=== PATIENT | female | born 1985 | race African-American/Black ===

== ENCOUNTER 2018-05-18 22:17 | Emergency (ER) | payer SELFPAY ==
[2018-05-18] MEDS: ACETAMINOPHEN 325 MG TABLET. PO (23:10)
[2018-05-18] MEDS: IBUPROFEN 600 MG TABLET. PO (23:11)
== END 2018-05-18 23:45 | disposition home or self-care (01) ==
LOC: ER 22:17
DX: S63.501A Unspecified sprain of right wrist, initial encounter (principal); M25.561 Pain in right knee; M54.5 Low back pain; W01.0XXA Fall on same level from slipping, tripping and stumbling without subsequent striking against object, initial encounter; Y93.89 Activity, other specified; Y92.89 Other specified places as the place of occurrence of the external cause; Y99.8 Other external cause status
CPT/HCPCS: 29125; 73110; 73562; 99283; 99284

== ENCOUNTER 2018-05-22 22:22 | Emergency (ER) | payer SELFPAY ==
[2018-05-22] MEDS: ORPHENADRINE CITRATE 60 MG/2 ML VIAL. IM (23:53)
== END 2018-05-23 00:25 | disposition home or self-care (01) ==
LOC: ER 05-23 00:25
DX: M62.830 Muscle spasm of back (principal)
CPT/HCPCS: 96372; 99283; J2360

== ENCOUNTER 2018-05-26 11:52 | Emergency (ER) | payer SELFPAY ==
[2018-05-22 23:00] VITALS: BP 132/71
[~2018-05-26 11:52] MED LIST: DICL50TA4 PO; ORPH100T PO
== END 2018-05-26 13:17 | disposition left against medical advice (07) ==
LOC: ER 11:52
DX: M54.9 Dorsalgia, unspecified (principal); M25.519 Pain in unspecified shoulder; Z53.21 Procedure and treatment not carried out due to patient leaving prior to being seen by health care provider

== ENCOUNTER 2020-07-01 15:08 | Emergency (ER) | payer OTHER ==
[~2020-07-01] VITALS: Ht 167.6 cm; Wt 100.0 kg
[2020-07-01 16:30] VITALS: BP 157/101
[2020-07-01] MEDS ORDERED: NAPR-514 PO (16:51)
[2020-07-01] MEDS ORDERED: OFLO5DRO7 LEFT EAR (16:51)
--- NOTE | 2020-07-01 16:54 | PHYS DOC ---
Past Medical History Past Medical History: No Pertinent History Past Surgical History: No Surgical History Smoking Status: Current Every Day Smoker Additional Information: OCCASIONAL SMOKER Alcohol Use: None Drug Use: None General Adult EDM: Chief Complaint: EARACHE/EAR PAIN HPI: HPI: Patient is a 34 year old AA female who presents emergency department with complaints of bilateral ear pain for the last 3 to 4 days. She denies any decreased hearing or ringing in her ears. She states that her left ear canal is very tender to touch, she denies any drainage or bleeding. She denies any recent fever, cough, sore throat, headache, nausea, vomiting, diarrhea, cough, or shortness of breath. She currently rates her pain a 9 out of 10 on the pain scale, she denies any alleviating factors, the pain is worse with touch Review of Systems: Review of Systems: Constitutional: Denies fever or chills. [] Eyes: Denies complaints HENT: Denies nasal congestion or sore throat; see HPI. [] Respiratory: Denies cough or shortness of breath. [] Cardiovascular: Denies chest pain or edema. [] GI: Denies abdominal pain, nausea, vomiting, or diarrhea. [] Musculoskeletal: Denies back pain or joint pain. [] Integument: Denies rash. [] Neurologic: Denies headache Lymphatic: Denies swollen glands. [] Heart Score: Risk Factors: Risk Factors: DM, Current or recent (<one month) smoker, HTN, HLP, family history of CAD, obesity. Risk Scores: Score 0 - 3: 2.5% MACE over next 6 weeks - Discharge Home Score 4 - 6: 20.3% MACE over next 6 weeks - Admit for Clinical Observation Score 7 - 10: 72.7% MACE over next 6 weeks - Early Invasive Strategies Allergies: Allergies: Allergies Coded Allergies Type Severity Reaction Last Updated Verified No Known Drug Allergies 05/18/18 No Physical Exam: PE: Constitutional: Well developed, well nourished, no acute distress, non-toxic appearance. [] HENT: Normocephalic, atraumatic, bilateral external ears normal, nose normal; fluid behind bilateral TMs without bulging or perforation consistent with otitis media, there is erythema and edema of the lateral right ear canal consistent with otitis externa, no drainage, no bleeding; bilateral mastoid processes nontender no erythema or warmth. [] Eyes: PERRLA, EOMI, conjunctiva normal, no discharge. [] Neck: Normal range of motion, supple, nontender, no stridor. [] Cardiovascular:Heart rate regular rhythm Lungs & Thorax: Respirations even and unlabored, no retractions, no respiratory distress Skin: Warm, dry, no erythema, no rash. [] Extremities: No cyanosis, ROM intact, no edema. [] Neurologic: Alert and oriented X 3, no focal deficits noted. [] Psychologic: Affect normal, judgement normal, mood normal. [] Current Patient Data: Vital Signs: Vital Signs Date Time Temp Pulse Resp B/P (MAP) Pulse Ox O2 Delivery O2 Flow Rate FiO2 07/01/20 16:30 97.5 93 18 157/101 (119) 99 Room Air 97.5 EKG: EKG: [] Radiology/Procedures: Radiology/Procedures: [] Course & Med Decision Making: Course & Med Decision Making Pertinent Labs and Imaging studies reviewed. (See chart for details) [] Dragon Disclaimer: [employer] Disclaimer: This electronic medical record was generated, in whole or in part, using a voice recognition dictation system. Departure Departure Impression: Primary Impression: Right otitis externa Qualified Codes: H60.311 - Diffuse otitis externa, right ear Additional Impression: Bilateral serous otitis media Qualified Codes: H65.03 - Acute serous otitis media, bilateral Disposition: 01 HOME, SELF-CARE Condition: STABLE Referrals: MARY SOTO JR, MD (PCP) Patient Instructions: Otitis Externa, [id number], Otitis Media, Adult, [id number] Additional Instructions: Fill the prescription and use it as directed. Recommend an [id number] decongestant or use of an inhaled nasal corticosteroid, such as Flonase to help with the pressure in your ears. Follow-up with your primary care doctor in 1 to 2 days, return to the ER symptoms worsen. Scripts Naproxen (NAPROXEN) 500 Mg Tablet 1 TAB PO BID PRN for PAIN for 10 Days, #20 TAB 0 Refills Prov: VARUN ORTEGA APRN 07/01/20 Ofloxacin (OFLOXACIN) 5 Ml Drops 5 DROP LEFT EAR BID, #5 ML 0 Refills Prov: VARUN ORTEGA CARPENTER INSPECTOR 07/01/20 Justicifation of Admission Dx: Justifications for Admission: Justification of Admission Dx: N/A VARUN ORTEGA CARPENTER INSPECTOR Jul 01, 2020 16:54
== END 2020-07-01 17:18 | disposition home or self-care (01) ==
LOC: ER 15:08
DX: H60.311 Diffuse otitis externa, right ear (principal); H65.03 Acute serous otitis media, bilateral; R60.0 Localized edema; F17.200 Nicotine dependence, unspecified, uncomplicated
CPT/HCPCS: 99283